=== PATIENT | male | born 1960 | race Caucasian/White ===

== ENCOUNTER → 2023-07-19 16:06 | Outpatient (REF) | payer OTHER, SELFPAY | LOC: HWRAD 16:06 | PROVIDERS: ATTENDING PHYSICIAN Internal Medicine Critical Care Medicine | DX: Z87.891 Personal history of nicotine dependence (principal) | CPT/HCPCS: 71271 ==

== ENCOUNTER → 2024-07-23 08:04 | Outpatient (REF) | payer OTHER, SELFPAY | LOC: HWRAD 08:04 | PROVIDERS: ATTENDING PHYSICIAN Internal Medicine Critical Care Medicine; FAMILY PHYSICIAN Family Medicine | DX: Z87.891 Personal history of nicotine dependence (principal) | CPT/HCPCS: 71271 ==